=== PATIENT | female | born 1945 | race Caucasian/White ===

== ENCOUNTER 2016-04-15 10:01 | Emergency (ER) | payer OTHER ==
[2016-04-15 10:15] VITALS: TEMP 98.7
--- NOTE | 2016-04-15 10:23 | CPEKG ---
Heart Rate: 71 RR Interval: 845 P-R Interval: 144 QRSD Interval: 126 QT Interval: 416 QTC Interval: 453 P [place]: 65 QRS [place]: -126 T Wave [place]: 44 EKG Severity - ABNORMAL ECG - EKG Impression: SINUS RHYTHM EKG Impression: RIGHT BUNDLE BRANCH BLOCK Electronically Signed By: Lazaro Hills 15-Apr-2016 10:34:07
--- NOTE | 2016-04-15 11:02 | UCPHY ---
H & P Patient Type: Established Chief Complaint Nursing Narrative: Patient to with left sided headache started this am. Patient states she went back to sleep and when she woke she was having midsternal chest pain into right shoulder that went away with getting up and moving around. Patient states she has frequent episodes of chest pain. Later this am she felt out of breath. Headache continues, chest pain is gone. Time Seen by Provider: 04/15/16 10:33 HPI/ROS: This patient presents with 2 chief complaints. 1. Headache which was present when she awakened at 2:00 a.m. this morning and which she localizes to the left frontal area and which persists.. The headache is not associated with fever, nausea, vomiting, visual difficulties area or any motor or sensory dysfunction. She has had no significant URI symptoms except nasal congestion and a postnasal drip. She has not had cough shortness of breath abdominal pain or diarrhea. 2. Transient localized to central chest pain which she 1st noticed about 5 this morning and which resolved after 10 or 15 minutes and has not recurred. Pain radiated toward her left shoulder but not into her back or into her arms. The pain seemed to be worse in the left lateral decubitus position but was unaffected by movement or breathing. She has not had any shortness of breath or diaphoresis. She admits to having frequent episodes of chest pain. REVIEW OF SYSTEMS: Constitutional: No fever, no malaise Eyes: No visual difficulties ENT: Nasal congestion, no sore throat, no ear pain Respiratory: No cough, no shortness of breath Cardiac: See above Gastrointestinal: No nausea, vomiting, abdominal pain or diarrhea. Genitourinary: Not addressed Musculoskeletal: No generalized myalgias Skin: No rash, no diaphoresis Neurological: Headache Source: Patient, RN notes reviewed Exam Limitations: No limitations - Personal History Current Tetanus Diphtheria and Acellular Pertussis (TDAP): Yes Tetanus Vaccine Date: < 10 years - Medical/Surgical History Hx Asthma: No Hx Chronic Respiratory Disease: No Hx Diabetes: No Hx Cardiac Disease: Yes Hx Renal Disease: No Hx Cirrhosis: No Hx Alcoholism: No Hx HIV/AIDS: No Hx Splenectomy or Spleen Trauma: No Other PMH: medical-Rt bundle branch blockage. surgeries- hysterectomy, back surgey x 3, sinus surgery, right eye tear gland opened, breast implants, tonsillectomy - Family History Significant Family History: No pertinent family hx - Social History Smoking Status: Never smoked - Physical Exam Exam: GENERAL: Well-appearing, well-nourished and in no acute distress. HEAD: Atraumatic, normocephalic. EYES: Pupils equal round and reactive to light, extraocular movements intact, sclera anicteric, conjunctiva are normal. ENT: nares patent, oropharynx clear without exudates. Moist mucous membranes. There is no tenderness to percussion over the facial sinuses. There is no erythema or swelling over the forehead and no associated tenderness to palpation. NECK: Normal range of motion, supple without lymphadenopathy or JVD. LUNGS: Breath sounds clear to auscultation bilaterally and equal. No wheezes rales or rhonchi. HEART: Regular rate and rhythm without murmurs, rubs or gallops. Peripheral pulses are symmetric in all 4 extremities ABDOMEN: Soft, nontender, normoactive bowel sounds. No guarding, no rebound. No masses appreciated. EXTREMITIES: Normal range of motion, no pitting or edema. No clubbing or cyanosis. NEUROLOGICAL: Cranial nerves II through XII grossly intact. Normal speech, normal gait. PSYCH: Normal mood, normal affect. SKIN: Warm, dry, normal turgor, no visible rashes or lesions. Constitutional: Initial Vital Signs Temperature (C) 37.1 C 04/15/16 10:08 Heart Rate 75 04/15/16 10:08 Respiratory Rate 20 04/15/16 10:08 Blood Pressure 136/78 H 04/15/16 10:08 O2 Sat (%) 96 04/15/16 10:08 O2 Delivery Mode Room Air Allergies/Adverse Reactions: clindamycin Allergy (Verified 06/28/14 18:26) iodine Allergy (Verified 06/28/14 18:26) Home Medications: Medication Instructions Recorded Famotidine [Pepcid] 40 mg PO DAILY 10 Days 06/28/14 Multivitamin (OTC) 06/28/14 [place]-3 06/28/14 Medical Decision Making - Diagnostics EKG Interpretation: An EKG shows a right bundle branch block and is otherwise unremarkable Imaging: A chest x-ray shows no acute abnormality and nothing that would explain this patient's brief episode of chest pain. ED Course/Re-evaluation: The patient was monitored throughout her stay in the department and she remained stable in good condition throughout. Differential Diagnosis: I find no specific cause for this patient's headache but do not believe that she has an intra cranial or intercerebral problem including meningitis, hemorrhage or hematoma. There is nothing to suggest sinusitis. The chest pain is likewise not typical of any specific chest pain syndrome but I do not believe that she has coronary artery syndrome, pneumonia, pneumothorax or pericarditis. - Data Points Laboratory Results: Laboratory Results 04/15/16 11:30 04/15/16 11:30 04/15/16 11:30 WBC 6.40 10^3/uL (3.80-9.50) RBC 4.25 10^6/uL (4.18-5.33) Hgb 12.8 g/dL (12.6-16.3) Hct 38.2 % (38.0-47.0) MCV 89.9 fL (81.5-99.8) MCH 30.1 pg (27.9-34.1) MCHC 33.5 g/dL (32.4-36.7) RDW 12.3 % (11.5-15.2) Plt Count 199 10^3/uL (150-400) MPV 10.4 fL (8.7-11.7) Neut % (Auto) 59.4 % (39.3-74.2) Lymph % (Auto) 28.3 % (15.0-45.0) [place] % (Auto) 9.2 % (4.5-13.0) Eos % (Auto) 2.3 % (0.6-7.6) Baso % (Auto) 0.6 % (0.3-1.7) Nucleat RBC Rel Count 0.0 % (0.0-0.2) Absolute Neuts (auto) 3.80 10^3/uL (1.70-6.50) Absolute Lymphs (auto) 1.81 10^3/uL (1.00-3.00) Absolute Monos (auto) 0.59 10^3/uL (0.30-0.80) Absolute Eos (auto) 0.15 10^3/uL (0.03-0.40) Absolute Basos (auto) 0.04 10^3/uL (0.02-0.10) Absolute Nucleated RBC 0.00 10^3/uL (0-0.01) Immature Gran % 0.2 % (0.0-1.1) Immature Gran # 0.01 10^3/uL (0.00-0.10) Sodium 136 mEq/L (134-144) Potassium 3.9 mEq/L (3.5-5.2) Chloride 104 mEq/L (97-110) Carbon Dioxide 26 mEq/l (22-31) Anion Gap 6 mEq/L (8-16) BUN 19 mg/dL (7-23) Creatinine 0.7 mg/dL (0.6-1.0) Estimated GFR > 60 Glucose 86 mg/dL (70-100) Calcium 9.3 mg/dL (8.5-10.4) Total Bilirubin 0.9 mg/dL (0.1-1.4) AST 23 IU/L (14-46) ALT 27 IU/L (9-52) Alkaline Phosphatase 90 IU/L (38-126) Troponin I < 0.012 ng/mL (0-0.034) Total Protein 6.5 g/dL (6.3-8.2) Albumin 3.3 L g/dL (3.5-5.0) Departure - Departure Disposition: Home, Routine, Self-Care Clinical Impression: Headache Qualifiers: Headache type: unspecified Headache chronicity pattern: acute headache Intractability: not intractable Qualifier Code: (R51) Headache Condition: Good Instructions: Acute Headache (ED), Chest Pain (ED) Additional Instructions: If the headache is not completely resolved in 24-36 hours you should be re- evaluated. Cause for concern would be increasing pain, fever, vomiting or difficulty walking or talking. Adult Pain & Fever Control: We recommend Acetaminophen (Tylenol) and Ibuprofen (Motrin, Advil) for pain and fever control. When fever is high or pain severe, both drugs can be used at the same time, but at different intervals. Please note the time differences. Your dose is: Acetaminophen [650]mg every 4 to 6 hours ibuprofen [600]mg every [6] hours with food OR naproxen Sodium (Aleve) [440]mg every 12 hours. Note: do not take Acetaminophen with Hydrocodone (Vicodin, Lortab) or Oxycodone (Percocet). These medications also contain Acetaminophen. No more than 3000 mg of Acetaminophen should be taken in 24 hours (for an adult) . The maximal dose of ibuprofen that it is safe in a 24-hour period is 2400 mg. You may take 400 mg every 4 hours, 600 mg every 6 hours or 800 mg every 8 hours safely. Referrals: [place],. [Primary Care Provider] - As per Instructions - PQRS PQRS Measurement: Not applicable
[2016-04-15 11:36] LABS: % IMMATURE GRANULYOCYTES 0.2 % (0.0-1.1); ABSOLUTE IMMATURE GRANULOCYTES 0.01 10^3/uL (0.00-0.10); ADD DIFF? NO; ADD MORPH? NO; ADD SCAN? NO; ATYPICAL LYMPHOCYTE FLAG 20 (0-99); FRAGMENT RBC FLAG 0 (0-99); HEMATOCRIT 38.2 % (38.0-47.0); HEMOGLOBIN 12.8 g/dL (12.6-16.3); LEFT SHIFT FLG 0 (0-99); LIPEMIA HEMOLYSIS FLAG 80 (0-99); MEAN CELL HEMOGLOBIN 30.1 pg (27.9-34.1); MEAN CELL HEMOGLOBIN CONCENTR. 33.5 g/dL (32.4-36.7); MEAN CELL VOLUME 89.9 fL (81.5-99.8); MEAN PLATELET VOLUME 10.4 fL (8.7-11.7); PLATELET CLUMPS FLAG 0 (0-99); PLATELET COUNT 199 10^3/uL (150-400); RED BLOOD CELL COUNT 4.25 10^6/uL (4.18-5.33); RED CELL DISTRIBUTION WIDTH 12.3 % (11.5-15.2)
--- NOTE | 2016-04-15 11:39 | DX ---
Chest, PA and Lateral Upright Views - April 15, 2016, at 11:18 a.m. Clinical History: 70-year-old female with chest pain, and a family history of cardiac disease. Comparison Study: None available. Findings: The patient has had bilateral augmentation mammoplasties with fibrous capsular calcificatio ns present. Arthrodesis hardware is seen in association with the lumbar spine, and there are advanced degenerative changes at the 2 levels above this fusion Telemetry monitoring lead lines are present. The cardiac and mediastinal silhouette are normal. The lungs are well-expanded. There is no focal inf iltrate, atelectasis, pleural effusion, peripheral interstitial edema, or pneumothorax. The trachea i s midline. There is some minimal biapical pleural fibrosis. Impression: No acute abnormality.
[2016-04-15 11:57] LABS: ALANINE AMINOTRANSFERASE 27 IU/L (9-52); ALBUMIN 3.3 g/dL (3.5-5.0); ALKALINE PHOSPHATASE 90 IU/L (38-126); ANION GAP 6 mEq/L (8-16); ASPARTATE AMINOTRANSFERASE 23 IU/L (14-46); BILIRUBIN,TOTAL 0.9 mg/dL (0.1-1.4); CALCIUM 9.3 mg/dL (8.5-10.4); CARBON DIOXIDE 26 mEq/l (22-31); CHLORIDE 104 mEq/L (97-110); CREATININE 0.7 mg/dL (0.6-1.0); GLOMERULAR FILTRATION RATE > 60; GLUCOSE 86 mg/dL (70-100); POTASSIUM 3.9 mEq/L (3.5-5.2); SODIUM 136 mEq/L (134-144); TOTAL PROTEIN 6.5 g/dL (6.3-8.2)
[2016-04-15 12:04] LABS: TROPONIN I < 0.012 ng/mL (0-0.034)
[2016-04-15 12:10] VITALS: BP 117/74; PULSE 70; RESP 18; O2SAT 94
== END 2016-04-15 12:15 | disposition home or self-care (01) ==
LOC: CED 10:01
DX: R51 Headache (principal); R07.9 Chest pain, unspecified
CPT/HCPCS: 71020; 93005; G0463; 80053-PO; 84484-PO; 85025-PO; 93010-PO; 99215-PO

== ENCOUNTER 2016-07-23 08:33 | Emergency (ER) | payer OTHER ==
--- NOTE | 2016-07-23 08:46 | UCPHY ---
H & P Patient Type: Established Time Seen by Provider: 07/23/16 08:41 HPI/ROS: CHIEF COMPLAINT: Right ankle injury HISTORY OF PRESENT ILLNESS: The patient presents to the urgent care with complaints of right ankle pain, swelling and ecchymosis after she twisted her ankle while walking down the stairs last night. The patient did not strike her head or lose consciousness. She reports mild pain with ambulation. She denies associated knee, hip or midline back pain. The patient does have a history of prior back surgery. She does have some pain in her right paraspinal muscle along her lumbar spine. The patient denies focal numbness weakness or additional complaints. REVIEW OF SYSTEMS: A comprehensive 10 point review of systems is otherwise negative aside from elements mentioned in the history of present illness. Source: Patient Exam Limitations: No limitations - Personal History Tetanus Vaccine Date: < 10 years - Medical/Surgical History Hx Asthma: No Hx Chronic Respiratory Disease: No Hx Diabetes: No Hx Cardiac Disease: Yes Hx Renal Disease: No Hx Cirrhosis: No Hx Alcoholism: No Hx HIV/AIDS: No Hx Splenectomy or Spleen Trauma: No Other PMH: medical-Rt bundle branch blockage. surgeries- hysterectomy, back surgey x 3, sinus surgery, right eye tear gland opened, breast implants, tonsillectomy - Family History Significant Family History: No pertinent family hx - Social History Smoking Status: Never smoked - Physical Exam Exam: General Appearance: Alert, no distress Head: Atraumatic Eyes: Pupils equal, round, reactive ENT, Mouth: No hemotympanum, no oral trauma Neck: Nontender, trachea midline Respiratory: No chest wall tender, subcutaneous air, lungs clear bilaterally Cardiovascular: Regular rate and rhythm Abdomen: Abdomen is soft and nontender, pelvis stable Skin: No lacerations, No abrasion Back: No midline T/L/S pain Extremities: Tenderness to palpation along the lateral aspect of the right ankle, soft tissue swelling noted, ecchymosis present Neurological: A&Ox3, normal motor function, normal sensory exam Constitutional: Initial Vital Signs Temperature (C) 36.3 C 07/23/16 08:40 Heart Rate 62 07/23/16 08:40 Respiratory Rate 18 07/23/16 08:40 Blood Pressure 156/82 H 07/23/16 08:40 O2 Sat (%) 97 07/23/16 08:40 O2 Delivery Mode Room Air Allergies/Adverse Reactions: clindamycin Allergy (Verified 07/23/16 08:46) iodine Allergy (Verified 07/23/16 08:46) Home Medications: Medication Instructions Recorded Multivitamin (OTC) 06/28/14 [place]-3 06/28/14 Omeprazole 07/23/16 Medical Decision Making - Diagnostics Imaging Results: Right ankle x-ray: Negative for acute fracture, images reviewed by myself. ED Course/Re-evaluation: The patient presents to the ED for evaluation of a right ankle injury. There is no evidence of an obvious fracture seen by myself on x-ray. Patient will be discharged home with customary ankle sprain aftercare instructions. She is given follow-up of our on-call orthopedic surgeon for any unimproved symptoms. Differential Diagnosis: Differential diagnosis considered includes fracture, sprain, dislocation Departure - Departure Disposition: Home, Routine, Self-Care Clinical Impression: Right ankle sprain Condition: Good Instructions: Ankle Sprain (ED) Additional Instructions: 1. Take Ibuprofen or Motrin 600 mg by mouth three times a day. 2. Ice as directed 3. Wear Yao boot as needed for comfort 4. Follow up with the orthopedic surgeon you have been referred to for pain or immobility which persists past 5-7 days as this may be the sign of an injury not seen on the x-ray today. Referrals: Raoul Terrell MD [Medical Doctor] - As per Instructions - PQRS PQRS Measurement: 134: Depression screening and followup, PRIME MD-PHQ2 (12 years and older) Over the last 2 weeks, how often have you been bothered by any of the following problems? 1. Feeling down, depressed, or hopeless? 2. Little interest or pleasure in doing things? Answers noted both 130: Documentation of medications. Reviewed all patient medications, doses, route and frequency. 226: Do you smoke? No. 47: 65 and older: Advanced care planning. Patient has advanced directive.
[2016-07-23 08:49] VITALS: BP 156/82; PULSE 62; RESP 18; TEMP 97.3; O2SAT 97
== END 2016-07-23 09:51 | disposition home or self-care (01) ==
LOC: CED 08:33
DX: S93.401A Sprain of unspecified ligament of right ankle, initial encounter (principal); X50.9XXA Other and unspecified overexertion or strenuous movements or postures, initial encounter
CPT/HCPCS: 73610; G0463; L4386; 99214-PO